=== PATIENT | female | born 1975 | race Caucasian/White ===

== ENCOUNTER 2017-02-19 22:17 | Emergency (ER) | payer MEDICARE | END 2017-02-19 23:56 | disposition home or self-care (01) | LOC: D.ER 22:17 | DX: S70.261A Insect bite (nonvenomous), right hip, initial encounter (principal); W57.XXXA Bitten or stung by nonvenomous insect and other nonvenomous arthropods, initial encounter; Y93.89 Activity, other specified; Y92.89 Other specified places as the place of occurrence of the external cause; F41.9 Anxiety disorder, unspecified; F43.10 Post-traumatic stress disorder, unspecified ==